=== PATIENT | male | born 1960 | race Caucasian/White ===

== ENCOUNTER → 2019-01-03 | Outpatient (CLI) | payer OTHER ==
[~2019-01-03] MED LIST: CETI-176 PO; CHOL10005 PO; DICL100G39 TOP; FLUT16SP19 NS; GABA-492 PO; GINK60CA11 PO; LOSA-54 PO; MELA5TAB20 PO; MULT1CAP59 PO; OMEG-23 PO; PSEU120T9 PO; SIMV-49 PO; TIZA4CAP3 PO
--- NOTE | 2019-01-03 14:39 | EKG ---
FAC[facility]: [facility] PATIENT NAME: JESSICA MILES : [id number] MR: [id number] V: [id number] EXAM DATE: ORDERING PHYSICIAN: JESSICA LOMBARDO TECHNOLOGIST: MARGARITO Test Reason : PRE OP Blood Pressure : / mmHG Vent. Rate : 069 BPM Atrial Rate : 069 BPM P-R Int : 206 ms QRS Dur : 106 ms QT Int : 406 ms P-R-T Axes : -03 -08 019 degrees QTc Int : 435 ms Normal sinus rhythm with 1st degree AV block T flattening consistent with inferior ischemia vs normal variant No previous ECGs available Confirmed by PAIGE CORADO ([id number]) on 01/03/2019 6:16:48 PM Referred By: GRUPO Confirmed By:PAIGE CORADO
[2019-01-04 13:44] LABS: PLATELET COUNT, AUTOMATED 191 K/uL (150-450)
== END ==
LOC: LAB 13:15
PROVIDERS: ATTEND Radiology Diagnostic Radiology
DX: Z01.818 Encounter for other preprocedural examination (principal); I10 Essential (primary) hypertension; R94.5 Abnormal results of liver function studies
CPT/HCPCS: 36415; 82040; 82247; 82310; 82374; 82435; 82565; 82947; 84075; 84132; 84155; 84295; 84450; 84460; 84520; 85025; 85610; 93005

== ENCOUNTER 2019-01-08 01:31 | Day surgery (SDC) | payer OTHER ==
[~2019-01-08] VITALS: Ht 188 cm; Wt 128.8 kg
[2019-01-08] MEDS ORDERED: PROPOFOL EMUL(*) 10MG/ML 20 ML 20 ML ONE (06:12)
[2019-01-08] MEDS ORDERED: ONDANSETRON 4 MG/2 ML VIAL ONE (06:12)
[2019-01-08] MEDS ORDERED: DEXAMETHASONE SOD PHOS 10MG/ML ONE (06:12)
[2019-01-08] MEDS ORDERED: fentaNYL CITR 250 MCG/5 ML AMP ONE (06:12)
[2019-01-08] MEDS ORDERED: LIDOCAINE MPF 1% 5 ML VIAL ONE (06:12)
[2019-01-08] MEDS ORDERED: CLINDAMYCIN(*) 600 MG/NS 50 ML 50 ML IVPB ONE (08:00)
[2019-01-08] MEDS ORDERED: LIDOCAINE/SOD BICARB 8.4% SYR ID ONE (09:50)
[2019-01-08] MEDS ORDERED: NORMOSOL R SOLN(*) 1000 ML BAG 1,000 ML IV PRN (09:50)
[2019-01-08] MEDS ORDERED: FAMOTIDINE 20 MG TAB PO ONE (09:50)
[2019-01-08] MEDS ORDERED: MIDAZOLAM 2 MG/2 ML VIAL IVP PRN (09:50)
[2019-01-08 09:52] VITALS: BP 181/95
[2019-01-08] MEDS ORDERED: OXYMETAZOLINE SPRAY 15 ML BTL ONE (10:02)
[2019-01-08] MEDS ORDERED: BACITRACIN OINT 15 GM TUBE TP ONE (10:02)
[2019-01-08] MEDS ORDERED: LIDO/EPI 1% MDV 1:100,000 20ML INFIL ONE (10:02)
[2019-01-08] MEDS ORDERED: NS(*) 0.9% 250 ML BAG 250 ML ONE (10:03)
[2019-01-08] MEDS ORDERED: KETAMINE HCL 200 MG/20 ML MDV ONE ×2 (10:14→10:28)
[2019-01-08 12:21] VITALS: BP 160/97
[2019-01-08] MEDS ORDERED: AZIT-17 PO (12:24)
[2019-01-08] MEDS ORDERED: HYDR-653 PO (12:25)
[2019-01-08 12:45] VITALS: BP 156/86
--- NOTE | 2019-01-08 12:51 | OPERATIVE REPORT 1 ---
EVENT DATE: January 08, 2019 SURGEON: Henrik Phoenix MD ANESTHESIOLOGIST: Constantin Kruse MD ANESTHESIA: LMA PREOPERATIVE DIAGNOSIS 1. Nasal septal deviation. 2. Bilateral inferior turbinate hypertrophy. POSTOPERATIVE DIAGNOSIS 1. Nasal septal deviation. 2. Bilateral inferior turbinate hypertrophy. PROCEDURE PERFORMED 1. Septoplasty. 2. Submucous resection bilateral bilateral inferior turbinates. INDICATIONS Please refer to the preoperative note. DESCRIPTION OF PROCEDURE The patient was positively identified in the preoperative area. He was accompanied there by his . Risks again explained including, but are not limited to bleeding, infection, nasal septal perforation, and those associated with anesthesia. He acknowledged understanding of those risks. The patient was then brought back to the operative suite, placed supine on the operative table and anesthesia was administered. Once asleep, the patient was positioned, then prepped and draped in the usual sterile fashion. I initially decongested the nose by injecting approximately 10 cc of 1% lidocaine with epinephrine to the bilateral anterior nasal septal mucosa and along the face of the bilateral inferior turbinates. We began with the septoplasty. A nasal endoscopy was performed and this was notable for left inferior nasal septal spur and a rightward mid-septal deviation. A Lorenzo incision was made on the left anterior nasal septal mucosa. Subperichondrial flap was elevated. I then made an incision to the anterior nasal septal cartilage, approximately 5 mm posterior to the original [place] incision. The contralateral flap was raised. The deviated portion of the patient's nasal septal cartilage and bone was then removed. The Lorenzo incision was reapproximated with interrupted chromic stitch. I then addressed the inferior turbinates. A stab incision was made at the base of the left inferior turbinate. A Levine elevator was utilized to elevate the mucosa off the underlying bone. A submucosal resection was then performed with the turbinate blade with the microdebrider. The stab incision was then cauterized with suction Bovie electrocautery. The contralateral inferior turbinate was addressed in a similar fashion. Bilateral nasal septal splints were then placed and secured to the columella with a suture. The patient was then turned to Anesthesia for emergence. ESTIMATED BLOOD LOSS 25 cc. COMPLICATIONS None. MTDD
[2019-01-08] MEDS ORDERED: APAP/HYDROCODONE 325/5 TAB PO ONE (13:00)
[2019-01-08 13:07] VITALS: BP 161/104
[2019-01-08 13:12] VITALS: BP 175/101
--- NOTE | 2019-01-08 13:41 | NUR ---
pt. hypertensive when doing orthostatics but still within the 20% of preop. dr. guo informed and he was ok if the pt. went home and took his regular blood pressure medications. pt. told to take blood pressure medications when he got home.
== END 2019-01-08 12:21 | disposition home or self-care (01) ==
LOC: OR 01:31
PROVIDERS: ATTEND Otolaryngology
DX: J34.2 Deviated nasal septum (principal)
CPT/HCPCS: 30140; 30520; J1100; J2001; J2250; J2405; J2704; J3010; J3490; J7050

== ENCOUNTER → 2019-03-05 | Outpatient (CLI) | payer OTHER ==
[~2019-03-05] MED LIST changes: +AZIT-17 PO; +HYDR-653 PO; +VARI50KI IM
[2019-03-05 10:23] LABS: PLATELET COUNT, AUTOMATED 218 K/uL (150-450)
[2019-03-05 10:38] LABS: LDL CHOLESTEROL 130 mg/dl
== END ==
LOC: LAB 08:30
PROVIDERS: ATTEND Nurse Practitioner Family
DX: E78.5 Hyperlipidemia, unspecified (principal); I10 Essential (primary) hypertension; R74.8 Abnormal levels of other serum enzymes
CPT/HCPCS: 36415; 82040; 82247; 82310; 82374; 82435; 82465; 82565; 82947; 83718; 84075; 84132; 84155; 84295; 84443; 84450; 84460; 84478; 84520; 85025